=== PATIENT | female | born 1980 | race American Indian/Alaskan Native ===

== ENCOUNTER 2021-07-27 22:01 | Emergency (ER) | payer SELFPAY ==
[~2021-07-27] VITALS: Ht 170.2 cm; Wt 160.9 kg
[~2021-07-27 22:01] MED LIST: ADVIL200 MG PO; CYCLOBENZAPRINE10 MG PO; NORCO 5-325 TA1 EACH PO
[2021-07-27] MEDS ORDERED: ESCITALOPRAM OX20 MG PO (22:13)
[2021-07-27] MEDS ORDERED: VYVANSE40 MG PO (22:14)
== END 2021-07-27 22:52 | disposition home or self-care (01) ==
LOC: ED 22:01
DX: M25.511 Pain in right shoulder (principal); G89.29 Other chronic pain; M25.531 Pain in right wrist; M25.532 Pain in left wrist; Z88.8 Allergy status to other drugs, medicaments and biological substances; Z79.899 Other long term (current) drug therapy
CPT/HCPCS: 99283